=== PATIENT | female | born 2000 | race Caucasian/White ===

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

== ENCOUNTER → 2025-01-03 | Outpatient (CLI) | payer OTHER ==
[~2025-01-03] MED LIST changes: +ISOVUE-300 61% 100ML VIAL As Ordered ONE; +LIDOCAINE 1% MDV 20ML VIAL As Ordered ONE; +PROHANCE 279.3MG/ML 5ML VIAL As Ordered ONE; +WELLTAB38 PO; +ZOLO25TA PO
== END ==
LOC: M RAD 06:41
PROVIDERS: ATTEND Family Medicine
DX: M25.551 Pain in right hip (principal); H69.90 Unspecified Eustachian tube disorder, unspecified ear

== ENCOUNTER 2025-01-08 07:54 | Day surgery (SDC) | payer OTHER ==
[~2025-01-08] VITALS: Ht 162.6 cm; Wt 67.4 kg
[~2025-01-08 07:54] MED LIST changes: -ISOVUE-300 61% 100ML VIAL As Ordered ONE; -LIDOCAINE 1% MDV 20ML VIAL As Ordered ONE; -PROHANCE 279.3MG/ML 5ML VIAL As Ordered ONE
[2025-01-08] MEDS ORDERED: propofoL 200 MG/20 ML VIAL As Ordered ONE (08:37)
[2025-01-08] MEDS ORDERED: LIDOCAINE 2% 100MG/5ML SDV (FOR ANES.) As Ordered ONE (08:37)
[2025-01-08] MEDS ORDERED: ONDANSETRON 4MG 2ML VIAL As Ordered ONE (08:37)
[2025-01-08] MEDS ORDERED: ACETAMINOPHEN 1000MG/100ML IV BAG As Ordered ONE (08:37)
[2025-01-08] MEDS ORDERED: fentaNYL 100 MCG/2 ML INJECTION As Ordered ONE (08:38)
[2025-01-08] MEDS ORDERED: MIDAZOLAM INJ 2MG/2ML VIAL As Ordered ONE (08:38)
[2025-01-08] MEDS: LR 1,000 ML IV SCH (08:45)
[2025-01-08] MEDS: CIPRODEX OTIC SUSP 7.5ML As Ordered ONE (10:39)
[2025-01-08] MEDS: EPINEPHrine INJ 1 MG/ML 1ML AMP As Ordered ONE (10:50)
[2025-01-08] MEDS: LIDOCAINE W/EPINEPHRINE 1% 20ML VIAL As Ordered ONE (11:01)
[2025-01-08] MEDS ORDERED: fentaNYL 100 MCG/2 ML INJECTION IV PRN (11:30)
[2025-01-08] MEDS ORDERED: LR 1,000 ML IV SCH (11:30)
[2025-01-08] MEDS ORDERED: HYDROMORPHONE HCL 0.5 MG/ 0.5 ML SYRINGE IV PRN (11:30)
[2025-01-08] MEDS ORDERED: oxyCODONE 5MG TAB PO PRN (11:30)
[2025-01-08] MEDS: ONDANSETRON 4MG 2ML VIAL IV PRN (13:06)
[2025-01-08 14:00] VITALS: BP 116/64; TEMP 97.5; O2SAT 100
== END 2025-01-08 14:10 | disposition home or self-care (01) ==
LOC: M SDC 07:54
PROVIDERS: ATTEND Otolaryngology
DX: H73.891 Other specified disorders of tympanic membrane, right ear (principal); H69.93 Unspecified Eustachian tube disorder, bilateral; Z88.0 Allergy status to penicillin; Z79.899 Other long term (current) drug therapy
CPT/HCPCS: 21235; 69436; 69631; 81025; J0131; J0171; J1100; J2250; J2405; J3010

== ENCOUNTER → 2025-07-13 | Outpatient (REF) | payer OTHER ==
[2025-07-17 14:38] LABS: HPV APTIMA Not Detected (Not Detected)
== END ==
LOC: M SFHCLERA 17:41
PROVIDERS: ATTEND Student in an Organized Health Care Education/Training Program
DX: Z12.4 Encounter for screening for malignant neoplasm of cervix (principal)
CPT/HCPCS: 87624; G0123